=== PATIENT | female | born 1995 | race Caucasian/White ===

== ENCOUNTER 2017-12-23 13:26 | Emergency (ER) | payer BC, MEDICAID ==
[2017-12-23 13:48] VITALS: BP 114/76; PULSE 106; TEMP 98.3; O2SAT 100
[2017-12-23 14:05] LABS: BASOPHILS % (AUTO) 0 % (0-3); EOSINOPHILS % (AUTO) 2 % (0-9); HEMATOCRIT 35 % (35-47); HEMOGLOBIN 12.2 gm/dl (12.0-15.5); LYMPHOCYTES % (AUTO) 19.5 % (10-50); MEAN CORPUSCULAR HGB CONC 35.2 gm/dl (32.0-36.0); MEAN CORPUSCULAR VOLUME 91 fL (81-99); MONOCYTES % (AUTO) 7.3 % (0-12); NEUTROPHILS % (AUTO) 71.2 % (37-80)
[2017-12-23 14:24] LABS: BILIRUBIN,TOTAL 0.3 mg/dl (0.2-1.0); CALCIUM 8.3 mg/dl (8.5-10.1); CARBON DIOXIDE 28.8 mEq/L (21-32); CREATININE 0.46 mg/dl (0.60-1.00); POTASSIUM 3.5 mMol/L (3.5-5.1)
[2017-12-23 14:25] LABS: APPEARANCE,URINE Clear; BILIRUBIN,URINE NEGATIVE (NEGATIVE); COLOR,URINE Yellow; GLUCOSE, URINE (UA) NEGATIVE (NEGATIVE); KETONES,URINE NEGATIVE (NEGATIVE); LEUKOCYTE ESTERASE ,URINE NEGATIVE (NEGATIVE); NITRATE,URINE NEGATIVE (NEGATIVE); OCCULT BLOOD,URINE NEGATIVE (NEG-TRACE); PH,URINE 6.5; UROBILINOGEN,URINE 0.2 (0.2-1.0 EU)
[2017-12-23 14:38] LABS: EPITHELIAL CELLS 0-2 (SQUAMOUS); RBC,URINE 0-1 (0-3AV/HPF)
[2017-12-23 14:39] LABS: BACTERIA TRACE (< 1+); CRYSTALS NEGATIVE (0-3 AVE/HPF)
== END 2017-12-23 15:00 | disposition home or self-care (01) ==
LOC: ED 13:26
DX: O26.892 Other specified pregnancy related conditions, second trimester (principal); R06.02 Shortness of breath; Z3A.22 22 weeks gestation of pregnancy
CPT/HCPCS: 80053; 81001; 85025; 99282

== ENCOUNTER 2018-04-02 01:40 | Inpatient (IN) | payer BC, OTHER ==
[2018-04-02] MEDS ORDERED: MEPIVACAINE HCL 1% MPF 30 ML/VIAL SOL INFIL PRN (02:40)
[2018-04-02] MEDS ORDERED: LACTATED RINGERS 1,000 ML IV PRN (02:40)
[2018-04-02] MEDS ORDERED: METHYLERGONOVINE MALEATE 0.2 MG/ML SOL IM PRN (02:40)
[2018-04-02] MEDS ORDERED: FENTANYL 100MCG/2ML SOL IV PRN (02:40)
[2018-04-02] MEDS ORDERED: OXYTOCIN 10000 MU/ML SOL IM PRN (02:40)
[2018-04-02] MEDS ORDERED: CARBOPROST 250 MCG/ML SOL IM PRN (02:40)
[2018-04-02] MEDS ORDERED: SODIUM CHLORIDE 0.9% FLUSH 10 ML SOL IV PRN (02:40)
[2018-04-02 02:58] LABS: BASOPHILS % (AUTO) 0 % (0-3); EOSINOPHILS % (AUTO) 1 % (0-9); HEMATOCRIT 38 % (35-47); MEAN CORPUSCULAR HEMOGLOBIN 31.1 pg (27.0-32.0); MEAN CORPUSCULAR VOLUME 91 fL (81-99); MONOCYTES % (AUTO) 8.3 % (0-12); NEUTROPHILS % (AUTO) 66.7 % (37-80)
[2018-04-02] MEDS ORDERED: BISACODYL 10 MG SUP PR PRN (06:44)
[2018-04-02] MEDS ORDERED: TEMAZEPAM 15MG 15 MG CAP PO PRN (06:44)
[2018-04-02] MEDS ORDERED: BENZOCAINE/MENTHOL 1 SPR TOP PRN (06:44)
[2018-04-02] MEDS ORDERED: WITCH HAZEL 1 EA PAD TOP PRN (06:44)
[2018-04-02] MEDS ORDERED: FLEET ENEMA PR PRN (06:44)
[2018-04-02] MEDS ORDERED: METHYLERGONOVINE MALEATE 0.2 MG TAB PO PRN (06:44)
[2018-04-02] MEDS: IBUPROFEN 600 MG TAB PO PRN ×3 (07:23→18:59)
[2018-04-02] MEDS: APAP/HYDROCODONE 325/5 TAB PO PRN ×3 (07:25→21:14)
[2018-04-02] MEDS: DOCUSATE SODIUM 100 MG SGL PO SCH ×2 (08:43→21:15)
[2018-04-02] MEDS: SODIUM CHLORIDE 0.9% FLUSH 10 ML SOL IV SCH ×2 (08:57→11:27)
[2018-04-02] MEDS: MULTIVITAMIN2 1 EA TAB PO SCH (17:52)
[2018-04-02] MEDS: FOLIC ACID 1 MG TAB PO SCH (17:52)
[2018-04-03] MEDS: IBUPROFEN 600 MG TAB PO PRN ×2 (06:54→16:52)
[2018-04-03] MEDS: MULTIVITAMIN2 1 EA TAB PO SCH (09:58)
[2018-04-03] MEDS: DOCUSATE SODIUM 100 MG SGL PO SCH ×2 (09:58→21:22)
[2018-04-03] MEDS: FOLIC ACID 1 MG TAB PO SCH (09:58)
[2018-04-03] MEDS: APAP/HYDROCODONE 325/5 TAB PO PRN ×2 (09:58→21:22)
[2018-04-04] MEDS: IBUPROFEN 600 MG TAB PO PRN ×2 (01:44→08:36)
[2018-04-04 02:56] VITALS: BP 110/66; PULSE 94; RESP 16; TEMP 98.5; O2SAT 97
[2018-04-04] MEDS: APAP/HYDROCODONE 325/5 TAB PO PRN ×2 (06:36→14:14)
[2018-04-04] MEDS: FOLIC ACID 1 MG TAB PO SCH (08:35)
[2018-04-04] MEDS: DOCUSATE SODIUM 100 MG SGL PO SCH (08:36)
[2018-04-04] MEDS: MULTIVITAMIN2 1 EA TAB PO SCH (08:36)
== END 2018-04-04 16:25 | disposition home or self-care (01) | DRG 560 ==
LOC: OB 01:40
PROVIDERS: ADMIT Family Medicine; ATTEND Family Medicine
PROC: 10E0XZZ Delivery of Products of Conception, External Approach (ICD-10-PCS; principal; 2018-04-02)
PROC: 0KQM0ZZ Repair Perineum Muscle, Open Approach (ICD-10-PCS; 2018-04-02)
PROC: 6A550ZT Pheresis of Cord Blood Stem Cells, Single (ICD-10-PCS; 2018-04-02)
DX: O80 Encounter for full-term uncomplicated delivery (principal); Z37.0 Single live birth; Z3A.38 38 weeks gestation of pregnancy
CPT/HCPCS: 36415; 59025; 84112; 85018; 85025; J0670; J2210; J2590; A9270-GY

== ENCOUNTER 2018-04-09 19:10 | Emergency (ER) | payer BC, OTHER ==
[2018-04-09 19:47] VITALS: O2SAT 99
[2018-04-09 19:52] LABS: APPEARANCE,URINE Slightly Cloudy; BILIRUBIN,URINE NEGATIVE (NEGATIVE); COLOR,URINE Yellow; GLUCOSE, URINE (UA) NEGATIVE (NEGATIVE); KETONES,URINE NEGATIVE (NEGATIVE); LEUKOCYTE ESTERASE ,URINE 3+ (NEGATIVE); NITRATE,URINE NEGATIVE (NEGATIVE); OCCULT BLOOD,URINE 3+ (NEG-TRACE); PH,URINE 6.5; UROBILINOGEN,URINE 0.2 (0.2-1.0 EU)
[2018-04-09] MEDS: SODIUM CHLORIDE 0.9% 1000ML 1,000 ML IV ONE (20:00)
[2018-04-09] MEDS ORDERED: MORPHINE SULFATE 10 MG/ML SOL ONE (20:07)
[2018-04-09] MEDS: MORPHINE SULFATE 10 MG/ML SOL IV ONE (20:11)
[2018-04-09 20:14] LABS: BACTERIA 1+ (< 1+); EPITHELIAL CELLS 0-2 (SQUAMOUS); RBC,URINE 0-4 (0-3AV/HPF); WBC,URINE 20-30 (0-5AV/HPF)
[2018-04-09 20:23] LABS: BASOPHILS % (AUTO) 0 % (0-3); EOSINOPHILS % (AUTO) 2 % (0-9); HEMATOCRIT 35 % (35-47); HEMOGLOBIN 12.1 gm/dl (12.0-15.5); LYMPHOCYTES % (AUTO) 25.2 % (10-50); MEAN CORPUSCULAR HEMOGLOBIN 31.1 pg (27.0-32.0); MEAN CORPUSCULAR HGB CONC 34.5 gm/dl (32.0-36.0); MEAN CORPUSCULAR VOLUME 90 fL (81-99); MONOCYTES % (AUTO) 7.5 % (0-12); NEUTROPHILS % (AUTO) 64.8 % (37-80)
[2018-04-09 20:29] LABS: CALCIUM 8.3 mg/dl (8.5-10.1); CARBON DIOXIDE 26.5 mEq/L (21-32); CREATININE 0.73 mg/dl (0.60-1.00); POTASSIUM 3.6 mMol/L (3.5-5.1)
[2018-04-09 20:39] LABS: CRYSTALS NEGATIVE (0-3 AVE/HPF)
[2018-04-09 20:45] VITALS: BP 121/86; PULSE 96; RESP 20; TEMP 97.5
[2018-04-09] MEDS ORDERED: SODIUM CHLORIDE 0.9% 50 ML 25 ML IV PRN (21:10)
[2018-04-09] MEDS: CEFTRIAXONE 1 GM PDS 1 GM in SODIUM CHLORIDE 0.9% 50 ML 50 ML IV ONE (21:10)
[2018-04-09] MEDS ORDERED: CEFTRIAXONE 1 GM PDS ONE (21:15)
[2018-04-09] MEDS ORDERED: HYDROMORPHONE 1 MG/ML SYRINGE ONE (22:48)
[2018-04-09] MEDS: HYDROMORPHONE HCL 2 MG/ML SOL IV ONE (22:53)
[2018-04-10] MEDS: MAGNESIUM HYDROXIDE 30 ML SUS PO PRN (00:05)
[2018-04-10] MEDS ORDERED: MAGNESIUM HYDROXIDE 30 ML SUS ONE (00:09)
== END 2018-04-10 00:53 | disposition home or self-care (01) ==
LOC: ED 19:10
DX: M54.5 Low back pain (principal); R10.30 Lower abdominal pain, unspecified; N39.0 Urinary tract infection, site not specified; K59.00 Constipation, unspecified; O90.89 Other complications of the puerperium, not elsewhere classified; N20.0 Calculus of kidney
CPT/HCPCS: 74177; 80048; 81001; 85025; 87088; 99284; J0696; J2270; Q9967; J1170